=== PATIENT | male | born 1940 | race Caucasian/White ===

== ENCOUNTER 2018-10-29 22:09 | Inpatient (IN) ==
[2018-10-30] MEDS ORDERED: TYLENOL PO PRN (00:38)
[2018-10-30] MEDS ORDERED: ZOFRAN IV PRN (00:38)
[2018-10-30] MEDS ORDERED: NICODERM PATCH TD PRN (01:25)
[2018-10-30 01:38] LABS: HEMATOCRIT 43.6 % (42.0-52.0); HEMOGLOBIN 15.1 g/dL (14.0-18.0)
--- NOTE | 2018-10-30 02:19 | PROGRESS NOTE ---
DATE: 10/29/2018 CHIEF COMPLAINT: Hemoptysis. HISTORY OF PRESENT ILLNESS: This is a 77-year-old patient of Dr. Garcia and Dr. Cleveland who has lung cancer, presumably non-small cell lung cancer, but I do not have full information. He came in with hemoptysis starting around 6 p.m. today. Fairly bright red blood every time he coughs. No fevers. He does have a history of COPD and lung cancer. He is getting radiation therapy alone. His last PET scan which I think was in July showed decreased amount of cancer, the nodules had come down in size and again that was about 3 months ago. Reports hemoptysis. His workup in the ER at [place] showed normal H H. The patient himself is cachectic on examination. Pulmonary exam has no rales, no wheezing. His CT scan showed several spiculated nodules, one with hematoma, possibly halo effect, and then he has interstitial infiltrates at the base which are nonspecific. He certainly does not have a lobar pneumonia. There is some debris in the bronchials and bronchi. ASSESSMENT AND PLAN: Hemoptysis in the setting of lung cancer, most likely if not related to primarily lung cancer this may be radiation pneumonitis and that is what I would favor. I am going to start some low-dose steroids. It could also be infection, but would be unusual with no fevers and no white count with possible tuberculosis as a possibility, although he does not have a strong risk factors for that but we will check a QuantiFERON. We will get opinion of Dr. Garcia, and then I think also Dr. Fonseca. If he has persistent hemoptysis he may even need bronchoscopy. Overall though he looks very cachectic from this process. We will continue his breathing treatments and see how he does and follow closely. This is a [id number] encounter note with Aurea Lang. cc: MD Lara Deras MD
[2018-10-30] MEDS: ZOSYN 3.375 GM in NS 50 ML IV SCH ×4 (03:39→21:25)
[2018-10-30] MEDS: SOLU-MEDROL IV SCH ×2 (03:40→16:08)
--- NOTE | 2018-10-30 03:56 | HISTORY AND PHYSICAL ---
PRIMARY CARE PHYSICIAN: Dr. Corey Lafleur in [place], [place]. RADIATION ONCOLOGIST: Dr. Garcia though he has previously seen Dr. Porras in the past as well. DATE AND TIME: 10/30/2018 at 0015. CHIEF COMPLAINT: Hemoptysis. HISTORY OF PRESENT ILLNESS: Mr. Leija is a 77-year-old male with a past medical history of COPD, hyperlipidemia, hypertension and lung cancer. He is currently being treated for lung cancer by Dr. Garcia. The patient states that he did receive a total of 4 radiation treatments so far and states that his last radiation treatment was in the summer of 2017. He reports that his last PET scan was in July. The patient states at this time that they have not performed any other radiation treatments due to he did have improvement of his lung nodules. The patient reports that this evening at approximately 17:00 that he did begin having hemoptysis. He has been coughing up bright red blood. The patient states that he has not had this recently or previously in the past either. The patient has no other associated reported symptoms with this at this time. He denies recently not feeling well or being sick. He does have COPD and does occasionally become short of breath but this is with exertion though he states this has not worsened recently. He denies any dizziness, lightheadedness, feeling like he was going to pass out. He denies any chest pain, shortness of breath, abdominal pain, nausea, vomiting or diarrhea. He denies any hematochezia or melena and states that his last bowel movement was yesterday. He denies any dysuria. He denies any pain, numbness, tingling or swelling in extremities. He also denies any fever, body aches, or chills. He also denies any previous history of known DVT or pulmonary embolism. Upon evaluation in the ER at [facility], his hemoglobin and hematocrit were stable with a hemoglobin 15.1, hematocrit 45.5, platelet count was 346,000. PT was 12.4, INR 0.93 and PTT was 35.4. The patient's blood pressure was elevated with readings in the 190s systolically over 100 diastolically. Heart rate was 80, respirations 14 and oxygen saturation at one time was documented at 86% room air and another time 91% room air. He was placed on nasal cannula 2 L and this was reportedly improved. Further evaluation of his symptoms they did perform studies of CT thorax with contrast which did show suspicious nodules in the left upper and lower lobes concerning for metastatic disease. Bilateral bronchovascular infiltrates which may represent post infectious or radiation changes. According to the notes from [facility], it does appear that time Dr. Malagon, who was completions engineer for oncology at their facility, did contact Dr. Lainez and arranged transfer to [facility] for further treatment and evaluation. The patient has been placed on the medical floor inpatient for admission. REVIEW OF SYSTEMS: A 14 point review of systems was conducted with the patient and all were negative except for pertinent positives mentioned in above HPI. PAST MEDICAL HISTORY: 1. Hypertension. 2. Hyperlipidemia. 3. COPD. The patient reports that he is not oxygen dependent. 4. Lung cancer. Previously followed by Dr. Porras, now being followed by Dr. Garcia. The patient states that he has received 4 radiation treatments in the past with his last one being in the summer of 2018. He reports his last PET scan was in July and these have been showing improvement. 5. History of a AAA repair. PAST SURGICAL HISTORY: 1. Repair of a ruptured abdominal aortic aneurysm. 2. History of placement of a left-sided chest tube secondary to collapsed lung when he was admitted with pneumonia. 3. Reported 2 abdominal surgeries secondary to complications that were shortly after his AAA repair that occurred during the same admission. He states this was approximately 8 years ago when all these surgeries occurred. SOCIAL HISTORY: The patient does live at home with his . He is retired. 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 He did report previous occasional alcohol use of beer but states he has not drank in 10 years. There is no known illicit drug use. The patient does still smoke at this time. He started smoking in his 20s and did smoke 1- 1/2 pack per day though is down to half a pack per day at this time. FAMILY HISTORY: Positive for his mother having a history of dementia. She in her 90s. His father in his 70s from heart problems that were secondary to a previous fever type illness, though he is uncertain of what type illness it was. ALLERGIES: Patient has no known allergies. HOME MEDICATIONS: 1. Alprazolam 0.25 mg p.o. daily. 2. Symbicort 160/4.5 mcg inhaler 2 puffs inhaled b.i.d. 3. Catapres 0.2 mg p.o. b.i.d. 4. Hydralazine 50 mg p.o. b.i.d. 5. Lisinopril 20 mg p.o. b.i.d. 6. Metoprolol succinate extended release 100 mg p.o. b.i.d. 7. Pravastatin 20 mg p.o. at bedtime. 8. Spiriva 2 puffs inhaled once daily. DIAGNOSTIC DATA/LABORATORY RESULTS: Initial laboratory results were performed at [facility]. These records were also available for viewing on the chart. White blood cell count is 10.4, hemoglobin 15.1, hematocrit 45.5, platelet count is 346,000. PT 12.4, INR 0.93, PTT is 35.4. Sodium 135, potassium 3.9, chloride 94, serum bicarbonate was 28, BUN 12, creatinine 0.8 with a GFR of 99, glucose is 122. Liver function tests are within normal limits. Calcium is 9.7. Chest PA and lateral did show indistinctness in the medial aspect of the right lower lung zone concerning for pneumonic infiltrate. CT chest with contrast showed emphysematous changes. There was also a 20 x 6.9 mm nodule identified in the right upper lobe with surrounding halo which may represent perilesional hemorrhage, post biopsy. There is a 7.5 mm nodule in the right upper lobe with surrounding hematoma which may represent post therapy change. There is a spiculated nodule seen in the left lower lobe measuring 2.6 x 1.8 cm and a spiculated nodule seen in the left upper lobe measuring 11.2 x 4.8 mm. There was also bronchovascular infiltrates seen in the right upper, middle and bilateral lower lobes. There was also debris within the right mainstem bronchus. Radiologist impression noted the suspicious nodule in the left upper and lower lobes concerning for metastatic disease. There was also bilateral bronchovascular infiltrates which may represent postinfectious or radiation changes. PHYSICAL EXAMINATION: VITAL SIGNS: Temperature 98.5 degrees, heart rate 84, respirations 18, blood pressure 166/83, oxygen saturation is 96% on nasal cannula at 2 L. GENERAL: Mr. Leija is a 77-year-old male. He was resting in the inpatient bed. He was in no acute distress. He was awake, alert and able to answer questions appropriately. HEENT: Head is atraumatic, normocephalic. Pupils are equal, round, reactive to light, were 3 mm bilaterally and brisk. Oral mucosa is moist. Oropharynx was clear. NECK: Supple. Trachea midline. CARDIOVASCULAR: Patient has S1-S2 present. No murmurs, gallops, rubs appreciated with a regular rate and rhythm. PULMONARY: Patient has symmetrical chest expansion bilaterally. Lung sounds in bilateral upper and lower solano were clear to auscultation. He was in no respiratory distress at this time. At bedside, he did have an emesis bag that did have bright red blood noted that he has been coughing up. ABDOMEN: Soft, nontender, nondistended. He does have surgical scars noted at midline. Bowel sounds were present in all 4 quadrants, were normoactive. EXTREMITIES: No cyanosis or edema noted. Pulse, motor, and sensory were intact in all extremities. Radial pulses and pedal pulses are 2+ bilaterally. INTEGUMENTARY: Patient's skin is pink, warm and dry. NEUROLOGICAL: Patient is alert and oriented x4. He is able to move all extremities. There do not appear to be any focal neurological deficits noted at this time. ASSESSMENT AND PLAN: 1. Hemoptysis. This may be related to his lung cancer though it could be related to radiation pneumonitis as well. For further evaluation and treatment we are going to place a consult with Pulmonology with Dr. Fonseca as well as consult with Oncology with Dr. Porras and Dr. Garcia. We will go ahead and place the patient with low-dose steroids. Since it could possibly also be infection, we will go ahead and cover him with antibiotics of Zosyn though he has not had fever, leukocytosis or any other respiratory symptoms except for his hemoptysis at this time. We will rule out tuberculosis as a possibility. We have ordered a QuantiFERON. We have obtained blood cultures. We did do a repeat hemoglobin and hematocrit upon his arrival at [facility] which was hemoglobin 15.1, hematocrit 43.6. His vital signs are stable at this time other than just slightly elevated blood pressure. We will continue to follow. 2. Lung cancer. We will continue treatment as mentioned above with #1. We will await Oncology evaluation and recommendations. 3. Chronic obstructive pulmonary disease. He does not appear to be in exacerbation at this time. He is requiring a little oxygen with nasal cannula at 2 L for reportedly having O2 saturations that were in the high 80s to low 90s range at [facility] but he is maintaining oxygen saturations of 96% on 2 L nasal cannula here. We will continue with scheduled DuoNeb treatments and his regularly prescribed Symbicort. 4. Hypertension. We have continued his regularly prescribed home medicine of Catapres, Apresoline, Prinivil and Toprol-XL. 5. Hyperlipidemia. We will continue his pravastatin. 6. Nicotine dependence. We have placed the patient to have a nicotine patch. We will strongly discourage him from continued smoking. We did discuss this in the room with the patient for several minutes. He states that he does want to quit smoking and is quitting after today. We will continue to encourage this throughout his admission and upon discharge. The patient has been placed on the medical floor with telemetry. He will have vital signs every 8 hours. We will do strict intake and output. We have implemented aspiration precautions. He will be on a regular diet. We will repeat a CBC and CMP in the morning. Further orders and recommendations pending hospital course, diagnostic studies, and physician evaluation. Dictated by VIKRAM Parker for Audi Lainez MD cc: Audi Lainez MD [facility]
[2018-10-30 07:05] LABS: AGAP 12; ALB/GLOB RATIO 1.1; ALKALINE PHOSPHATASE 93 U/L (32-122); BUN 12 mg/dL (8-22); CALCIUM 8.8 mg/dL (8.8-10.2); CHLORIDE 96 mmol/L (98-107); COSMO 269; CREATININE 0.8 mg/dL (0.7-1.2); ESTIMATED GFR > 60; GLUCOSE 117 mg/dL (70-104); GOT 20 U/L (10-34); GPT 13 U/L (10-44); POTASSIUM 3.8 mmol/L (3.5-5.1); SODIUM 134 mmol/L (136-145); TCO2 26 mmol/L (25-35); TOTAL BILIRUBIN 0.81 mg/dL (0.20-1.00); TOTAL PROTEIN 7.5 g/dL (6.3-8.3)
[2018-10-30 07:23] LABS: BASO# 0.02 X1000 (0.0-0.2); BASO% 0.1 % (0.0-0.8); EOS# 0.05 X1000 (0.0-0.7); EOS% 0.3 % (0.0-10.0); HEMOGLOBIN 14.6 g/dL (14.0-18.0); IMM GRAN# 0.04 X1000 (0.0-0.04); IMM GRAN% 0.2 % (0.0-0.5); LYMPH% 6.7 % (20.5-51.1); MCHC 34.8 g/dL (33-37); MCV 83.3 FL (81-99); MONO# 0.47 X1000 (0.11-0.59); MONO% 2.9 % (1.7-9.3); MPV 9.1 FL (7.4-10.4); NEUT# 14.67 X1000 (1.4-6.5); NEUT% 89.8 % (42.2-75.2); PLT 321 X1000 (130-400); RBC 5.04 XMIL (4.7-6.1); RDW 15.6 % (11.5-14.5); WBC 16.35 X1000 (4.8-10.8)
--- NOTE | 2018-10-30 07:30 | EKG Report ---
Test Performed on : 10/30/2018 02:52:06 AM Test Reason : hemoptysis, lung cancer Blood Pressure : / mmHG Vent. Rate : 073 BPM Atrial Rate : 073 BPM P-R Int : 150 ms QRS Dur : 098 ms QT Int : 424 ms P-R-T Axes : 075 -14 068 degrees QTc Int : 467 ms Sinus rhythm. with occasional premature ventricular complexes. Right atrial enlargement Borderline ECG No previous ECGs available Confirmed by Hai KAPLAN, Boy Infante ([id number]) on 10/30/2018 7:59:13 AM
[2018-10-30 07:46] LABS: BANDS 4 % (0-1); EOS 4 % (1-10); LYMPHS 8 % (21-51); SEGS 84 % (42-75)
[2018-10-30] MEDS ORDERED: SPIRIVA INH SCH (09:00)
[2018-10-30] MEDS ORDERED: XANAX PO SCH (09:00)
[2018-10-30] MEDS: SYMBICORT 160/4.5 MICROGM INHALER INH SCH ×2 (10:32→21:35)
[2018-10-30] MEDS: DUONEB (A & A) INH SCH ×3 (10:33→21:35)
[2018-10-30] MEDS: APRESOLINE PO SCH ×2 (10:47→21:25)
[2018-10-30] MEDS: TOPROL XL PO SCH ×2 (10:47→21:25)
[2018-10-30] MEDS: CATAPRES PO SCH ×2 (10:48→21:25)
[2018-10-30] MEDS: PRINIVIL PO SCH ×2 (10:48→21:25)
[2018-10-30] MEDS ORDERED: NS 250 ML ONE (11:26)
--- NOTE | 2018-10-30 11:52 | Diag Imaging Result Doc PS360 ---
CHEST-PORTABLE - 10/30/2018 INDICATION: hemoptysis COMPARISON: 10/29/2018 FINDINGS: There are some subtle airspace opacities in the upper lobes bilaterally and medial right lung base. Heart size and pulmonary vascularity is normal. No pneumothorax or pleural effusion. IMPRESSION: Faint bilateral upper lobe and right basilar infiltrates, nonspecific. Electronically signed by Max Stevens 10/30/2018 11:50 AM
--- NOTE | 2018-10-30 12:25 | CONSULTATION ---
DATE OF CONSULTATION: 10/30/2018 REASON FOR CONSULTATION: Hemoptysis with history of lung cancer. HISTORY OF PRESENT ILLNESS: Mr. Leija is a 77-year-old gentleman who is well known to me. He was treated with stereotactic radiosurgery in November of 2017 for an early stage of right upper lobe lung cancer. He did extremely well with treatment, and responded nicely. I have been following every 3 months as an outpatient. His most recent PET scan was on 08/23/2018. At this time, the area in the right lobe had continued to show no significant evidence of disease. There was however the development of a small left upper lobe pulmonary nodule with an SUV of 3. This was quite small measuring less than 8 mm in size. Definitely, too small to biopsy or characterize. He has a PET scan later this month, and follow up in my office. This weekend he states that he was in his normal state of health and feeling fine when he coughed and coughed up quite a bit of blood. He states that it soaked through a towel. He went to the emergency room in [place] where a CT of the chest was done. This revealed suspicious nodules in the left upper and lower lobes of the lung concerning for metastatic disease. Specifically, there was a spiculated nodule in the left lower lobe measuring 2.6 x 1.8 cm, and a spiculated nodule in the left upper lobe measuring 1.1 x 0.48 cm. There was also noted to be a 20 x 6.9 mm nodule in the right upper lobe with surrounding halo which may represent sukhjinder-lesional hemorrhage. The patient was transferred to [facility], and placed on antibiotics and steroids. Today, he states he is feeling great, and has had no hemoptysis at all. He denies any shortness of breath. He states he has not weighed recently, but does not think he has lost any significant weight. He states his appetite has improved in the last couple of months. He denies any sore throat. He denies any chronic cough. He denies any pain. PHYSICAL EXAMINATION: Vital Signs: Per the hospital record. HEENT: Normocephalic, atraumatic. Pupils are equal, round, and react to light. Extraocular movements are intact. Neck: Supple with no lymphadenopathy. Heart: Regular rate and rhythm. Lungs: Clear to auscultation bilaterally. Abdomen: Soft, with no hepatosplenomegaly. Extremities: Reveal no edema. Neurologic: Grossly nonfocal. ASSESSMENT/PLAN: In summary, Mr. Leija is a gentleman with a remote history of an early stage lung cancer successfully treated with SBRT. Unfortunately, it appears that he may have metastatic disease at this time. I think it is reasonable for him to complete a course of steroids and antibiotics. He already has a PET scan scheduled for later this month with plans to follow up with me in the office. If these abnormalities are still persist at that time, then I can arrange for biopsy at that time. I believe Dr. Fonseca is supposed to see the patient while he is here in the hospital. He may like to go ahead and take him for bronchoscopy, and I think that that would be perfectly reasonable as well. cc: Lara Garcia MD
--- NOTE | 2018-10-30 14:23 | PROGRESS NOTE ---
DATE: 10/30/2018 SUBJECTIVE: This morning Mr. Leija refers to be doing a lot better. He said he has not had any more hemoptysis and he is breathing well. Briefly Mr. Leija was admitted yesterday after he presented to [facility] for hemoptysis. He was evaluated over there and transferred here for higher level of care. Mr. Leija is known to have his an early stage right upper lobe lung cancer which was treated with stereotactic radiosurgery in November 2017 and has been following up with Dr. Garcia. I understand the latest PET scan was done on 08/23/2018 and at that point it looked like everything was under control. In any case, he presented to [facility] because of hemoptysis. He was evaluated and transferred over here. This morning he feels a lot better. No more hemoptysis. OBJECTIVE: Mr. Leija is a 77-year-old male. He looks chronically ill and wasted. BMI is 15.2.HEENT: Mucosa is pink and moist. Anicteric. Acyanotic. He does have temporal wasting. Chest: Air entry is bilaterally reduced. There is a prolonged expiratory phase of respiration but no crackles, no rhonchi. Cardiovascular: Regular rate and rhythm. No murmurs, no rubs, no gallops. GI: Abdomen is soft, nontender. Bowel sounds present. Extremities: No pedal edema. COOK VEGETABLE: COOK VEGETABLE patient is awake, alert, oriented. There is no focal neurological deficit. LABORATORY DATA: WBC is 16.32, hemoglobin is 14.6, platelet count of 321,000. Chemistry is also reviewed, unremarkable. DIAGNOSTIC STUDIES: 1. A chest x-ray this morning did show a faint bilateral upper lobe and right basilar infiltrates, which is nonspecific. 2. A CT scan of the chest which was done yesterday from [facility] shows: #1 suspicious nodules in the left upper and lower lobes concerning for metastatic disease. #2 to bilateral bronchovascular infiltrate which may represent postinfectious or radiation changes. ASSESSMENT: 1. Hemoptysis presumably related to bronchopneumonia versus post radiation pneumonitis. The patient is getting IV antibiotics and steroids and pulmonary medicine has been consulted. The patient has also [facility] 2. History of lung adenocarcinoma. Recent CT scan seems to show some metastasis to the left upper and lower lobes. He will follow up with Dr. Garcia accordingly. 3. History of chronic obstructive pulmonary disease with ongoing tobacco use, noted. The patient has been counseled. He is currently on nasal cannula oxygenation. Seems to be saturating well. 4. Hypertension controlled. PLAN: In general Mr. Liss barros is doing fairly okay. He denies any more hemoptysis since he got admitted. He is currently on IV antibiotics and he is getting steroids with pending Pulmonary Medicine evaluation to decide on possible bronchoscopy. DISPOSITION: Disposition is going to depend on the rest of the hospital course. Of note Mr. Leija and his were all under the impression that the lung cancer is completely gone and when I brought up the CT report, they were doubtful. I would leave that discussion to them and to the oncologist on board. cc: Quentin Villasenor MD MTDD
--- NOTE | 2018-10-30 16:36 | HEMO/ONC CONSULTATION ---
DATE: 10/30/2018 REASON FOR CONSULTATION: Lung cancer, the patient known. HISTORY OF PRESENT ILLNESS: Mr. Leija is a 77-year-old, male who is known to us as we have previously worked him up for right upper lobe pulmonary adenocarcinoma. He was last seen in our office in December 2017. He was a poor surgical candidate and so the decision was made for him to proceed with radiation only. He is status post four treatments of stereotactic radiation therapy with Dr. Garcia. The patient did not receive any chemotherapy. It appears that the patient currently presented to [facility] emergency department with hemoptysis. They worked him up, including a CT of the thorax which showed a suspicious nodule in the left upper lobe concerning for metastatic disease. He was actually transferred to [facility] and has been admitted for further evaluation and treatment. Currently, the patient reports that his hemoptysis has subsided. He is feeling well and has no acute complaints. PAST MEDICAL HISTORY: 1. Hypertension. 2. Hyperlipidemia. 3. Chronic obstructive pulmonary disease, severe. The patient is not currently on oxygen at home. 4. Lung cancer, right upper lobe, pulmonary adenocarcinoma status post stereotactic treatment with four treatments back in summer 2017. He continues to follow with Dr. Garcia regularly. He in fact actually had a PET scan back in December 2018. 5. History of abdominal aortic aneurysm. PAST SURGICAL HISTORY: 1. Repair of ruptured abdominal aortic aneurysm. 2. History of left chest tube placement. 3. Two abdominal surgeries secondary to complications related to his abdominal aortic aneurysm repair. SOCIAL HISTORY: The patient lives with his . He is retired. Previously, he admits to occasional alcohol use but has not had anything to drink alcohol caballero in 10 years. He denies any illicit drug use. The patient is a current smoker and began smoking back in his 20s, so almost 57 years ago and smokes about 1-1/2 packs of cigarettes per day. FAMILY HISTORY: Positive for dementia in his mother who in her 90s. Father in 70s from heart problem. REVIEW OF SYSTEMS: A 12-point review of systems has been completed and is negative except as expressed in HPI. PHYSICAL EXAMINATION: Vital Signs: Temperature 98.1 degrees, heart rate 68, respirations 18, blood pressure 150/87, O2 saturation 98% on 2 L nasal cannula. General: This is a thin, male, lying in his hospital bed in no acute distress. HEENT: Head normocephalic, atraumatic. Pupils equal, round, reactive. Ears, nose, throat, neck, and mouth: Oral mucosa is normal. Cardiovascular: S1-S2 heard. Regular rate and rhythm. Respiratory: Coarse breath sounds throughout. Some wheezing and faint rhonchi noted. No rales. Abdomen: Soft with positive bowel sounds noted. Musculoskeletal: No bony abnormalities. Extremities: Some trace bilateral lower extremity pedal edema. Neurologic: The patient is alert and oriented. No focal motor deficits. LAB STUDIES: 1. White blood cells 16.35, hemoglobin 15.1, hematocrit 43.6, platelet count 321,000. Per the H and P, impression of the CT of the chest which was done [facility], there is a 20 x 6.9 mm nodule identified in the right upper lobe with surrounding halo which may represent hemorrhage post biopsy, a 7.5 mm nodule in the right upper lobe with surrounding hematoma which may represent post therapy change. There is a spiculated nodule seen in the left lower lobe measuring 2.6 x 1.8 cm, and spiculated nodule seen in the left upper lobe measuring 11.2 x 4.8 mm. There are also bronchial basilar infiltrates in the right upper lobe, middle, and bilateral lower lobes. ASSESSMENT AND PLAN: 1. Hemoptysis. This is improved. Pulmonology is on board. Continue current management and workup. He is receiving IV antibiotics for chronic obstructive pulmonary disease exacerbation. 2. Lung cancer. PET scan back in 08/23/2018 showed a new left upper lobe nodule that was suspicious for disease recurrence but was too small to biopsy. Recommendation was to repeat the PET scan at the 3 month alma delia. The patient already has a PET scan scheduled for the end of this month. He will proceed with that PET scan and follow up with Dr. Garcia. 3. Chronic obstructive pulmonary disease exacerbation. Continue treatment with oxygen support, nebulizer treatments, steroids and IV antibiotics. 4. Hypertension. Continue per primary care. We want to thank you for consulting us on Mr. Leija. We will continue to follow along and adjust our treatment plan per his hospital course. Dictated by AURA Harrington for Kindra Porras MD cc: Kindra Porras MD I have seen and examined the patient and the note above reflects my history, physical, assessment and plan. Kindra Porras MD [facility]
[2018-10-30 19:56] LABS: INR 0.98; PROTIME 13.7 Seconds (11.0-16.0)
[2018-10-30 19:57] LABS: PTT 37.7 Seconds (22.3-41.8)
--- NOTE | 2018-10-30 20:42 | PULMONOLOGY CONSULTATION ---
DATE: 10/30/2018 REQUESTING PHYSICIAN: Dr. Villasenor. REASON FOR CONSULTATION: Hemoptysis. HISTORY OF PRESENT ILLNESS: Mr. Leija is a 77-year-old, white male, who developed an early stage lung cancer in the right upper lobe last spring. The patient was evaluated by cardiothoracic surgery and felt not to be a surgical candidate. The patient was evaluated by Dr. Garcia and completed SBRT in November 2017. He has been followed with serial PET scans. His right side has continued to remain without evidence of disease, but he did develop a new left upper lobe nodule in July of this year, which was metabolically active, but too small to biopsy. The patient developed a cough with bloody sputum. He produced approximately 1/4 to 1/2 cup of bright red blood and presented to the emergency room at [facility]. CT scan revealed post treatment changes on the right with evidence of bleeding predominantly in the right lower lobe and debris in the entrance of the right lower lobe. The lateral segment can also not be easily followed on his current scan. This scan also revealed the left upper lobe nodule which appears to have increased in size from his December scan and he has a new left lower lobe nodule which may be real or related to the current presentation. His bleeding has ceased. The patient does take an 81 mg aspirin, but denies other anticoagulation. PAST MEDICAL HISTORY/PROBLEM LIST: 1. Lung cancer as per above. 2. Severe COPD, as per above. 3. Dyslipidemia. 4. Hypertension. 5. Status post abdominal aortic aneurysm repair. 6. History of pneumothorax, requiring chest tube placement. SOCIAL HISTORY: The patient has a [id number] history for tobacco and continues to smoke. He reports he has never been told to stop smoking. Occasional alcohol use noted. FAMILY HISTORY: Positive for dementia and heart disease. REVIEW OF SYSTEMS: As noted in the HPI. He denies fevers, chills, tuberculosis exposure. PHYSICAL EXAMINATION: General: Reveals a thin, white male with a BMI of 15, who appears his stated age or older. Vital Signs: Blood pressure 136/68, heart rate 76, respiratory rate 18. Oxygen saturation 96% on room air. HEENT: Pupils are equal and reactive. Oropharynx is clear. Neck: Supple. Chest: Reveals markedly diminished breath sounds bilaterally with prolonged expiratory phase. Cardiac: S1, S2. Abdomen: Soft. Extremities: Without change. LABORATORIES: CT scan as per HPI. White blood count 16.4, hemoglobin 14.6, platelet count 321,000. PT 13.7, PTT 37.7. Sodium 137, potassium 3.8, chloride 96, bicarbonate 26, BUN 12, creatinine 0.8. IMPRESSION: A 77-year-old with: 1. Severe chronic obstructive pulmonary disease. 2. Lung cancer on the right, status post SBRT. 3. New nodules on the left with significant hemoptysis. PLAN: 1. Continue antibiotics as you are doing in the event that this was triggered by an infectious process. 2. Continue bronchodilators. 3. Avoid aspirin. 4. Check collagen, epi-platelet aggregation to see the severity of his aspirin effect. 5. Smoking cessation has been recommended. 6. Anticipate bronchoscopy on Tuesday morning to evaluate the airways. cc: Mehrdad Fonseca MD
[2018-10-30] MEDS ORDERED: XANAX PO PRN (21:00)
[2018-10-30] MEDS: PRAVACHOL PO SCH (21:25)
[2018-10-31] MEDS: ZOSYN 3.375 GM in NS 50 ML IV SCH ×4 (05:10→21:14)
[2018-10-31] MEDS: SOLU-MEDROL IV SCH ×2 (05:14→16:17)
--- NOTE | 2018-10-31 06:53 | Diag Imaging Result Doc PS360 ---
EXAM: CHEST-PORTABLE HISTORY: dyspnea TECHNIQUE: Portable chest single view COMPARISON: 10/30/2018 FINDINGS: The lungs are hyperexpanded. The heart is not enlarged. The vessels are not distended. There are increased interstitial markings in the upper right lung similar to the prior study. Markings in the right base are less pronounced. Mild increased markings in the left base. No effusion identified. IMPRESSION: Mixed areas of improvement and interval worsening. Electronically signed by José Soto 10/31/2018 6:51 AM
[2018-10-31 07:13] LABS: BASO# 0.01 X1000 (0.0-0.2); BASO% 0.1 % (0.0-0.8); EOS# 0.01 X1000 (0.0-0.7); EOS% 0.1 % (0.0-10.0); HEMATOCRIT 39.2 % (42.0-52.0); HEMOGLOBIN 13.8 g/dL (14.0-18.0); IMM GRAN# 0.06 X1000 (0.0-0.04); IMM GRAN% 0.3 % (0.0-0.5); LYMPH# 1.05 X1000 (1.2-3.4); MCH 29.1 PG (27-31); MCHC 35.2 g/dL (33-37); MCV 82.5 FL (81-99); MONO# 1.33 X1000 (0.11-0.59); MONO% 7.6 % (1.7-9.3); MPV 9.3 FL (7.4-10.4); NEUT# 15.02 X1000 (1.4-6.5); NEUT% 85.9 % (42.2-75.2); PLT 342 X1000 (130-400); RBC 4.75 XMIL (4.7-6.1); RDW 15.5 % (11.5-14.5); WBC 17.48 X1000 (4.8-10.8)
[2018-10-31 07:28] LABS: AGAP 12; BUN 21 mg/dL (8-22); CALCIUM 8.6 mg/dL (8.8-10.2); CHLORIDE 95 mmol/L (98-107); COSMO 271; CREATININE 0.9 mg/dL (0.7-1.2); ESTIMATED GFR > 60; GLUCOSE 123 mg/dL (70-104); SODIUM 133 mmol/L (136-145); TCO2 26 mmol/L (25-35)
[2018-10-31 07:35] LABS: LYMPHS 6 % (21-51); MONO 2 % (1-9); SEGS 84 % (42-75)
[2018-10-31] MEDS: CATAPRES PO SCH ×2 (09:09→20:32)
[2018-10-31] MEDS: TOPROL XL PO SCH ×2 (09:09→20:32)
[2018-10-31] MEDS: PRINIVIL PO SCH ×2 (09:09→20:32)
[2018-10-31] MEDS: APRESOLINE PO SCH ×2 (09:09→20:31)
[2018-10-31] MEDS: DUONEB (A & A) INH SCH ×3 (10:46→21:29)
[2018-10-31] MEDS: SYMBICORT 160/4.5 MICROGM INHALER INH SCH ×2 (10:46→21:28)
[2018-10-31] MEDS: TUMS PO PRN ×3 (11:29→20:32)
--- NOTE | 2018-10-31 14:02 | PROGRESS NOTE ---
DATE: 10/31/2018 SUBJECTIVE: This is a patient of Dr. Garcia, oncologist who came in with hemoptysis. This is a 77 -year-old male with past medical history of COPD, hyperlipidemia, hypertension, lung cancer, currently being treated for lung cancer by Dr. Garcia. The patient states that he did receive a total of 4 radiation treatments and so far states his last treatment was in the summer 2017. He reports that his last PET scan was in July. The patient states that this time not perform any other radiation treatments due to he did not have improvement in his lung nodules. The patient reports that evening approximately 1700 he did begin to have hemoptysis. He has been coughing up bright red blood so admitted through the ER in [facility]. Hemoglobin and hematocrit were stable. Admission diagnosis hemoptysis, history of lung cancer. His hemoptysis prior related to radiation pneumonitis as well. He was admitted to the hospital. Hematology, oncology following lung cancer, right upper lobe pulmonary adenocarcinoma status post stereotactic treatment. He had 4 treatments in summer 2017. Continue followed by Dr. Garcia. Had a PET scan back in December 2018. He had history of repair of abdominal aortic aneurysm, history of left chest tube placement, 2 abnormal surgeries secondary to complications related to abdominal aortic aneurysm. OBJECTIVE: General: Today. Feels good. Awake and alert breathing comfortably. Vital Signs: Temp 98.2 degrees, pulse 65, respirations 18, blood pressure 165/76. HEENT: Pupils are equal round. Lungs: Clear in all lung solano. Cardiovascular: Regular rhythm and rate without murmur or S3. Abdomen: Soft. Skin: Warm and dry. DATA: Urine output is 900 mL. Chest x-ray shows mixed areas of improvement, interval worsening. ASSESSMENT AND PLAN: 1. Hemoptysis, presumably related to bronchopneumonia versus post radiation pneumonitis. Continue IV antibiotics and steroids. Seems to be doing better clinically. The patient has been seen by Dr. Garcia. 2. History of lung adenocarcinoma. Recent CT scan seems to show some metastasis to the left upper and lower lobes. Once again, follow up with Dr. Garcia. 3. Chronic obstructive pulmonary disease, ongoing tobacco use noted. The patient has been counseled on importance of stopping smoking. He is currently on nasal cannula. 4. Hypertension. Blood pressure appears controlled currently on IV antibiotics and steroids. They are deciding on possible bronchoscopy. Looking over orders, I do not see any change at this point. He is on albuterol ipratropium treatments, budesonide formoterol 1 puff b.i.d., calcium carbonate 500 mg q.4 hours, Catapres 0.2 mg b.i.d., Apresoline 50 mg b.i.d., lisinopril 20 mg b.i.d., methylprednisone 40 mg IV q.12 metoprolol succinate 100 mg b.i.d., nicotine patch 14 mg every day, Pravachol 20 mg a day, piperacillin 3.375 g IV q.6 hours. cc: Misael Aj MD
[2018-10-31] MEDS: PRAVACHOL PO SCH (20:31)
--- NOTE | 2018-10-31 21:00 | PULMONOLOGY PROGRESS NOTE ---
DATE: 10/31/2018 SUBJECTIVE: The patient is awake, alert, and conversant. He has some sputum production but no significant blood today. OBJECTIVE: Vital Signs: The patient has been afebrile for the last 24 hours. Blood pressure 126/75, heart rate 72, respiratory rate 16, oxygen saturation 94%. HEENT: Pupils are equal and reactive. Oropharynx appears clear. Neck: Supple. Chest: Reveals marked subcutaneous fat loss. He is near skeletal in appearance. Prolonged expiratory phase with crackles in both lung bases. Cardiac Exam: S1, S2. Abdomen: Soft. Extremities: Without edema. LABORATORIES: Chest x-ray reveals slight increased markings in the left base compared to prior fail. Right base has significantly improved. IMPRESSION: A 77-year-old with: 1. Severe chronic obstructive pulmonary disease. 2. Lung cancer, status post SBRT. 3. Hemoptysis. 4. New pulmonary nodules. PLAN: 1. Continue current antibiotic regimen. 2. Avoid aspirin. 3. Continue bronchodilators. 4. Encouraged smoking cessation. 5. Bronchoscopy to evaluate the airways tomorrow morning has been scheduled at 7:30 a.m. If he is doing well, he could be discharged after the bronchoscopy. cc: Mehrdad Fonseca MD
[2018-11-01] MEDS: SOLU-MEDROL IV SCH ×2 (03:40→15:42)
[2018-11-01] MEDS: ZOSYN 3.375 GM in NS 50 ML IV SCH ×4 (03:40→21:00)
[2018-11-01] MEDS ORDERED: SODIUM CHLORIDE 0.9% 20 ML ONE (06:49)
[2018-11-01] MEDS ORDERED: XYLOCAINE 2% ONE (06:49)
[2018-11-01] MEDS ORDERED: EPINEPHRINE ONE (06:49)
[2018-11-01] MEDS ORDERED: XYLOCAINE 2% VISCOUS ONE (06:49)
[2018-11-01] MEDS ORDERED: FENTANYL ONE (07:06)
[2018-11-01] MEDS ORDERED: DIPRIVAN 1% ONE (07:06)
[2018-11-01] MEDS ORDERED: XYLOCAINE-MPF 2% ONE (07:07)
[2018-11-01] MEDS ORDERED: ROBINUL ONE (07:11)
--- NOTE | 2018-11-01 08:51 | OPERATIVE NOTE ---
PROCEDURE DATE: PROCEDURE PERFORMED: Bronchoscopy. CLINICAL INDICATIONS: A 77-year-old with lung cancer and hemoptysis. PROCEDURE: After informed consent was obtained, bronchoscopy was performed in the endoscopy suite. A time-out was performed and all agreed with the procedure. All questions were answered. Topical anesthesia was achieved with viscous lidocaine to the right nostril and the left nostril. Monitored anesthesia care was provided by the anesthesia services. When patient was sedated, attempts to pass the bronchoscope through the right and left nostril were unsuccessful due to the passages being too narrow. An oral route was pursued to gain entry to the trachea. A bite block was placed in position. The bronchoscope was advanced through the bite block and over the tongue. The vocal cords appeared normal with normal movement. The bronchoscope was advanced into the trachea. Blood could be seen coming from both the right and the left mainstem. The blood was maroon and clotted. Blood clots could be seen and all lobar segments. The clots frequently obstructed the bronchoscope requiring removal of bronchoscope and clearing the passages. After multiple washings, all airway segments were washed clear. Visualization was performed. No endobronchial lesions were identified in the right upper lobe, right middle lobe, right lower lobe, left upper lobe, lingula or left lower lobe. There was no active bleeding during the bronchoscopy and therefore, source of bleeding was not identified. IMPRESSION: Hemoptysis with blood seen in all lobar segments as outlined above. With adequate washing and clearance, no active bleeding was identified. RECOMMENDATION: 1. Hold aspirin for at least 2 to 3 weeks if not indefinitely. 2. Continue antibiotics pending results of cultures. 3. Given the fresh nature of the blood, I would recommend at least 1 more day of observation in the hospital. cc: Mehrdad Fonseca MD
[2018-11-01] MEDS: DUONEB (A & A) INH SCH ×3 (09:14→22:44)
[2018-11-01] MEDS: SYMBICORT 160/4.5 MICROGM INHALER INH SCH ×2 (09:14→19:51)
[2018-11-01] MEDS: CATAPRES PO SCH ×2 (09:55→20:58)
[2018-11-01] MEDS: TOPROL XL PO SCH ×2 (09:55→20:58)
[2018-11-01] MEDS: APRESOLINE PO SCH ×2 (09:56→20:58)
[2018-11-01] MEDS: PRINIVIL PO SCH ×2 (09:56→20:58)
--- NOTE | 2018-11-01 13:36 | PROGRESS NOTE ---
DATE: 11/01/2018 SUBJECTIVE: Mr. Leija is feeling good. He is breathing comfortably. He has not really had any significant hemoptysis. His would like him to stay another day and watch him, but he is eating well and breathing comfortably. OBJECTIVE: He remains afebrile, temperature 98 degrees, pulse 78, respirations 18, and blood pressure 140/73. Pupils are equal and round. Lungs are clear in all lung solano anterolateral and posterior. Cardiovascular exam with regular rhythm and rate without murmur or S3. Abdomen is soft. Skin is warm and dry. Urine output was 2000 mL. ASSESSMENT AND PLAN: 1. Dr. Fonseca did a bronchoscopy for hemoptysis with blood seen in all lobar segments as outlined, adequate washing clearance. No active bleeding. He wanted to hold aspirin for 2 to 3 weeks if not indefinitely. Continue his antibiotics and await cultures. Blood cultures from the 6th show no growth. Await tracheal and bronchial washings. We will watch him today. 2. Lung cancer status post SBRT. 3. New pulmonary nodules. 4. To review, this is a 77-year-old gentleman. He was treated with stereotactic radiosurgery in November of 2017 for early stage right upper lobe lung cancer. He did extremely well with treatment and responded nicely. Dr. Garcia has been following him every 3 months as an outpatient. Most recent PET scan on 08/23/2018, the area in the right lobe had continued to show no significant evidence of disease. There was however development of small left upper lobe pulmonary nodule. There is quite small measuring less than 8 mm in size so continue to follow per Dr. Garcia. We are planning to do a PET scan later on this month. cc: Misael Aj MD
[2018-11-01] MEDS: TUMS PO PRN (16:12)
[2018-11-01] MEDS: PRAVACHOL PO SCH (20:58)
[2018-11-02] MEDS: SOLU-MEDROL IV SCH (04:51)
[2018-11-02] MEDS: ZOSYN 3.375 GM in NS 50 ML IV SCH ×2 (04:51→10:00)
[2018-11-02] MEDS: SYMBICORT 160/4.5 MICROGM INHALER INH SCH (07:43)
[2018-11-02 07:51] VITALS: BP 147/78
[2018-11-02] MEDS: TOPROL XL PO SCH (08:22)
[2018-11-02] MEDS: APRESOLINE PO SCH (08:22)
[2018-11-02] MEDS: CATAPRES PO SCH (08:23)
[2018-11-02] MEDS: PRINIVIL PO SCH (08:23)
--- NOTE | 2018-11-02 10:01 | DISCHARGE SUMMARY ---
ADMISSION DATE: 10/29/2018 DISCHARGE DATE: 11/02/2018 HISTORY: He is followed by Dr. Corey Lafleur who is in [place], [place]. Radiation Oncologist, Dr. Garcia and Oncologist, Dr. Porras. Came in complaining of hemoptysis. A 77-year-old white male with past medical history of COPD, hyperlipidemia, hypertension, lung cancer, currently being treated for lung cancer per Dr. Garcia. States that he received a total of 4 radiation treatments. His last PET scan was in July. The patient states that he has not had any other radiation treatments. Anyway, he came in with hemoptysis, a fair amount. He came to [place] emergency room and was transferred here. PAST MEDICAL HISTORY: 1. Hypertension. 2. Hyperlipidemia. 3. COPD. 4. Lung cancer, followed by Dr. Porras and Radha. 5. History of abdominal aortic aneurysm repair. HOSPITAL COURSE: Dr. Fonseca was consulted. Dr. Porras was consulted and his last PET scan was on 08/23/2018, showed new left upper lobe nodule that was suspicious for disease but too small to biopsy. A recommendation was to repeat the PET scan in 3 months. He does have underlying COPD and suspect some bronchial irritation. He had really no further bleeding while he was here. Dr. Fonseca did a bronchoscopy. He wanted to hold the aspirin for 2 to 3 weeks if not indefinitely. Continue antibiotics. Await the results of cultures. He had no growth from blood cultures. Bronchial washings, no growth as of 48 hours, so we will let him go home. PLAN: I will put him on a Medrol Dosepak and I think I will give him Augmentin 875 mg twice a day for another 7 days. Follow up with primary care. Follow up with Dr. Fonseca, Dr. Porras and Dr. Garcia. HOME MEDICATIONS: Alprazolam 0.25 mg a day, Symbicort 160/4.5 one inhalation b.i.d., Catapres 0.2 mg b.i.d., hydralazine 50 mg b.i.d., Prinivil 20 mg b.i.d., metoprolol succinate 100 mg b.i.d., Pravachol 20 mg at bedtime, Spiriva 18 mcg 1 inhalation daily, Augmentin 875 mg twice a day for 7 days. cc: Misael Aj MD
[2018-11-02] MEDS: DUONEB (A & A) INH SCH (11:44)
== END 2018-11-02 11:13 | disposition home or self-care (01) | DRG 204 ==
LOC: DIRADM 22:09 → SUATTDRO 22:09 → 3N 10-30 00:03
PROVIDERS: ATTEND Emergency Medicine
CPT/HCPCS: 71010; 71045; 80048; 80053; 85014; 85018; 85025; 85576; 85610; 85730; 86480; 87015; 87040; 87070; 87077; 87102; 87116; 87147; 87186; 87205; 87206; 88112; 93005; 93010; 94640; 94761; A9270; J0171; J2543; J2920; J3010; J7050